=== PATIENT | female | born 2000 | race Caucasian/White ===

== ENCOUNTER → 2024-05-30 09:28 | Outpatient (REF) | payer BC, SELFPAY ==
[2024-05-30 11:04] LABS: D-Dimer 0.43 ug/mlFEU (0.00-0.50)
== END ==
LOC: HWLAB 09:28
PROVIDERS: ATTENDING PHYSICIAN Nurse Practitioner Family
DX: R05.9 Cough, unspecified (principal)
CPT/HCPCS: 36415; 71046; 85379